=== PATIENT | male | born 1945 | race Caucasian/White ===

== ENCOUNTER → 2018-04-27 | Outpatient (CLI) | payer OTHER ==
[~2018-04-27] MED LIST: ASPI325 PO; Calcium Magnes1 EACH PO; Daily Multiple1 EACH PO; FISH OIL 1,2001 EAC2 PO; TAMS.4ER PO; VITAMIN D310000 UNI1 PO
== END ==
LOC: PLD 14:07 → LAB SHORT 14:07
DX: D22.9 Melanocytic nevi, unspecified (principal)
CPT/HCPCS: 88305

== ENCOUNTER → 2025-01-11 | Outpatient (CLI) | payer OTHER | LOC: LAB 12:15 → LAB SHORT 12:15 | DX: R82.90 Unspecified abnormal findings in urine (principal) | CPT/HCPCS: 87086 ==